=== PATIENT | male | born 1980 | race Caucasian/White ===

== ENCOUNTER 2018-02-12 00:17 | Emergency (ER) | payer BC, MEDICAID ==
[~2018-02-12] VITALS: Ht 195.6 cm; Wt 81.2 kg
--- NOTE | 2018-02-12 00:30 | NUR ---
shira notified. case #[id number]
[2018-02-12] MEDS ORDERED: amox tr/potassium clavulanate 875/125mg TAB PO ONE (02:45)
[2018-02-12] MEDS ORDERED: ondansetron 4mg rapidly disintigrating tab PO ONE (02:45)
[2018-02-12] MEDS ORDERED: HYDR-3965 PO (03:07)
[2018-02-12] MEDS ORDERED: AMOX-422 PO (03:07)
--- NOTE | 2018-02-12 03:14 | NUR ---
Trying to get the pt up to look at his film so I could show him the fracture and he is rude. He is elusive about who to call for a ride. He says he isn't (has a ring) and registration that is in the room says it shows him as . CN made aware.
[2018-02-12 03:18] VITALS: BP 142/78
== END 2018-02-12 03:20 | disposition home or self-care (01) ==
LOC: ER 00:18
DX: S02.652A Fracture of angle of left mandible, initial encounter for closed fracture (principal); S01.312A Laceration without foreign body of left ear, initial encounter; R47.81 Slurred speech; Z79.2 Long term (current) use of antibiotics; Y04.2XXA Assault by strike against or bumped into by another person, initial encounter; Y93.89 Activity, other specified; Y92.89 Other specified places as the place of occurrence of the external cause; Y99.8 Other external cause status
CPT/HCPCS: 12013; 70450; 70486; 72125; 99284